=== PATIENT | male | born 1940 | race Caucasian/White ===

== ENCOUNTER → 2016-10-18 | Outpatient (CLI) | payer BC ==
[~2016-10-18] MED LIST: ASPEC81 PO
[2016-10-18 13:33] LABS: ESTIMATED AVERAGE GLUCOSE 120 mg/dl; HA1C FLAG Normal (Normal)
[2016-10-18 13:46] LABS: BLOOD UREA NITROGEN 25 mg/dl (7-18); GLUCOSE 101 mg/dl (70-99)
[2016-10-18 13:47] LABS: ALT/SGPT 28 U/L (12-78); BUN/CREATININE RATIO 20.9 (10-20); CALCIUM 8.8 mg/dl (8.5-10.1); CARBON DIOXIDE 26 mmol/L (21-32); CHLORIDE 107 mmol/L (98-107); POTASSIUM 4.4 mmol/L (3.5-5.1); SODIUM 141 mmol/L (136-145)
== END | disposition home or self-care (01) ==
LOC: C.LABMFLN 08:14
PROVIDERS: ATTEND Family Medicine
DX: R73.01 Impaired fasting glucose (principal)

== ENCOUNTER 2022-05-16 07:04 | Observation (INO) ==
--- NOTE | 2022-03-09 13:31 | PAT Medication Instructions ---
Medication Instructions Date of Service March 09, 2022 Home Medications Medication Instructions Recorded travoprost 0.004 % eye drops 1 drops ophthalmic (eye) QPM #2.5 01/30/19 (Travatan Z) mL travoprost 0.004 % eye drops (Travatan Z) 1 drops ophthalmic (eye) QPM Take evening before surgery travoprost 0.004 % eye drops (Travatan Z) 1 drops ophthalmic (eye) QPM Other Notes If you have any questions please call us at [phone] or [phone] or [phone] or [phone]
--- NOTE | 2022-03-14 10:44 | History & Physical Report ---
Date of Service March 14, 2022 date of surgery: 04/12/22 Procedure: Right Total Knee Arthroplasty Surgeon: Andrew Billy Assessment & Plan (1) Arthritis of right knee: Plan: Presents for evaluation of chronic right knee pain. X-rays reviewed with patient show advanced degenerative changes of the right knee, is [id number] medial compartment and patellofemoral joint with joint space narrowing osteophyte formation subchondral sclerosis. He has tried and failed previous cortisone injection as well as viscosupplementation with minimal relief. Patient is very active and is now hindering his activities. We discussed treatment options he would like to proceed with a patient matched Joanne right total knee replacement at [facility]. We will schedule for Iovera treatment 2 weeks prior to surgery otherwise has no other questions or concerns. We will obtain medical clearance from Dr. Ling The risks and benefits have been discussed including, but not limited to, risk of infection, nerve injury, stiffness, loss of motion, failure to improve, etc. Reasonable outcomes and options of treatment were discussed. An explanation of appropriate alternatives to the procedure that may be advantageous were discussed and their risks and benefits, as well as the risks and benefits of not proceeding with treatment. I offered to answer any additional inquiries concerning the treatment involved. All the patient's questions were answered. The patient is agreeable, understanding of the treatment plan and alternatives, and wishes to proceed with the treatment plan. History of Present Illness Chief Complaint: Right knee pain Primary Care Provider: Eugenio Ling MD Robin is an 82-year-old male who presents for preop evaluation prior to right total knee replacement at [facility]. He has been having pain in this knee for many years now which is gradually worsened. Is now affecting his daily activities including walking standing going up and down steps. He tried oral anti-inflammatories and Tylenol without relief. He has had prior cortisone injections as well as viscosupplementation without relief. After discussing further treatment options he would like to proceed with a right total knee replacement Allergies Allergy/AdvReac Type Severity Reaction Status Date / Time No Known Allergies Allergy Mild NONE Verified 03/08/22 12:07 Home Medications Medication Instructions Recorded Confirmed Type travoprost 0.004 % eye drops 1 drops ophthalmic (eye) QPM #2.5 01/30/19 03/08/22 Rx (Travatan Z) mL Past Med/Surg History Medical History Glaucoma Surgical History History of cataract surgery bilateral History of knee replacement left Hx of appendectomy S/P arthroscopy of right shoulder S/P colonoscopy S/P right knee arthroscopy Family History Mother Brain tumor Uncle Myocardial infarction Father Alcoholic cirrhosis Son Cardiac arrhythmia, Onset Age: 34 irreg heart beat got Defib Sister Vein disorder Osteoporosis, Onset Age: 82 Denies family history of Ovarian cancer Prostate cancer Breast cancer Colorectal cancer Social History Smoking Status: Never smoker Age Started Using Tobacco: 18; Age Quit Using Tobacco: 34; packs per day: 1; Second Hand Exposure: No; Hx Alcohol Use: Yes ("occasionally") Alcohol type: beer Hx Substance Use: No Preferred Language: Guyanese Communication Ability: Effective Visual Impairment: Partially Limited Hearing Ability: Use of Hearing Aid Foundation Coordinator Required: No Beliefs That Will Affect Care: None marital status: Current Living Situation: Spouse current occupational status: employed current occupation: seasonal - trim trees Feels Safe at Home: Yes Childhood Exposure to Second-Hand Smoke: Yes (father) caffeine: Yes (occasional soda) Dental Care, Regularly: Yes Physical Activity Frequency: 5-6 Times per Week Physical Activity Frequency Comment: walking 1 mile a day and modified push ups Seatbelt Use: always Sunscreen Use: Yes Do you think of yourself as: straight/heterosexual Assistive Devices: Denture - Upper and Hearing Aid - Bilateral Review of Systems Review of Systems: All systems reviewed & are unremarkable except as noted in HPI & below Constitutional: no fever, no chills and no sweats Respiratory: no cough and no dyspnea Cardiovascular: no chest pain, no dyspnea and no orthopnea Gastrointestinal: no abdominal pain, no nausea and no vomiting Musculoskeletal: as per Subjective / HPI Physical Exam Physical Exam: HT: 5ft 10in WT: 80.2kg Constitutional: WD/WN, vitals as above no acute distress Respiratory: normal respiratory effort, lungs clear to auscultation no respiratory distress, no labored breathing and does not use accessory muscles Cardiovascular: RRR, no murmur, no edema Gastrointestinal (Abdomen): normal bowel sounds, soft, nontender, no hepatosplenomegaly Musculoskeletal: Knee: + knee abnormal to inspection (RIGHT KNEE-), + effusion (+1 effusion), + limited ROM of knee (ROM 0/3/110), + knee ROM with crepitation, + joint line tenderness (medial joint line) and + Peng's sign positive; no deformity, no skin erythema, no ecchymosis, no valgus laxity, no varus laxity, anterior drawer test negative, Kellen's sign negative and pivot shift test negative Results & Data Results & Data ([facility]) Diagnostic Findings Right Knee X-ray: Right knee series showing advanced degenerative changes to the right knee, narrowing of the medial compartment and patello-femoral joint with patellar spurring noted, findings showing joint space narrowing of the medial compartment and patello-femoral joint, osteophyte formation and subchondral sclerosis noted. overall varus alignment. no acute bony pathology noted.
--- NOTE | 2022-03-16 11:34 | Anesthesiology Consultation ---
Date of Service March 16, 2022 Assessment & Plan (1) Encounter for pre-operative examination: - Outpatient joint assessment: Patient is currently scheduled for inpatient pathway. If re-evaluated pending system levels during current pandemic/surgeon requests outpatient pathway, patient is not recommended candidate for outpatient joint program from anesthesia standpoint due to inadequate home support. If this were to change in the future, he was advised to call the office and this will be further reviewed with anesthesiologist given age. - COVID screening: Per assessment on 03/16/2022: Travel screen negative, no known COVID-19 positive contacts or current COVID-19 related symptoms in past 2 weeks. Pt vaccinated. To surgeon's discretion if preop COVID testing needed. Chart Review Chart Review: Acceptable Risk for Surgery and Patient seen in Pre Admission Testing Teaching & Discussion Pre-Anesthesia Teaching/Discussion Notes: Instructed NPO after midnight before surgery, except medications with 15 cc of water. Medication instructions provided according to the PAT guidelines. History Surgery Operation Date: 04/12/22 10:20 Proposed Procedures p Right Total Knee Arthroplasty - Andrew Billy DO Height/Weight Height: 5 ft 10 in Weight: 83.3 kg Allergies Allergy/AdvReac Type Severity Reaction Status Date / Time No Known Allergies Allergy Mild NONE Verified 03/08/22 12:07 Medications Home Medications Medication Instructions Recorded Confirmed Last Taken travoprost 0.004 % eye drops 1 drops ophthalmic (eye) QPM #2.5 01/30/19 03/08/22 Unknown (Travatan Z) mL Past Medical History Medical History Glaucoma Patient denies h/o stroke, seizures, heart attack, heart failure, DM, HTN, blood clots or blood transfusions. Exercise / Class Metabolic Activity II 4-5 Yardwork/Stairs/Walk up hill (denies CP or SOB With 1 FOS) Past Family History Family History Mother Brain tumor Uncle Myocardial infarction Father Alcoholic cirrhosis Son Cardiac arrhythmia, Onset Age: 34 irreg heart beat got Defib Sister Vein disorder Osteoporosis, Onset Age: 82 Denies family history of Ovarian cancer Prostate cancer Breast cancer Colorectal cancer Past Surgical History Surgical History History of cataract surgery bilateral History of knee replacement left Hx of appendectomy S/P arthroscopy of right shoulder S/P colonoscopy S/P right knee arthroscopy Past Anesthesia History No Hx of Anesthesia Complications and No Family Hx of Anesthesia Complications History of PONV No Hx of PONV and No Hx of Motion Sickness Social History Smoking Status: Never smoker tobacco type: cigarettes Do You Dip or Chew Tobacco: No Hx Alcohol Use: Yes Alcohol type: beer alcohol intake frequency: a few times a week Hx Substance Use: No substance use type: does not use Review of Systems Snoring, denies witnessed apneas. Patient denies chest pain, shortness of breath, dyspnea on exertion, reflux, fever, chills, cough, wheezing, or palpitations. Physical Exam Vital Signs Vitals BP 138/72 P 63 TEMP 98.2 SP02 97% on RA RESP 18 Physical Full cervical extension range of motion without pain TMD 3.5 finger breadths Mallampati Score 2 Dentition: intact, upper partial; denies loose or chipped teeth, caps/crowns, implants or bridges Lungs: normal respiratory effort. Clear throughout to auscultation, no adv entitious breath sounds Cardiac: regular rate and rhythm, no murmurs noted Carotid arteries: negative bruit bilat Lab Results Anesthesia Preop Results Results Anesthesia Widget: WBC 6.03 K/ul (4.8-10.8) 03/16/22 Hgb 14.3 g/dl (14.0-18.0) 03/16/22 Hct 42.7 % (40.1-51.0) 03/16/22 Plt 147 K/uL (130-400) 03/16/22 Na 138 mmol/L (136-145) 03/16/22 K 4.7 mmol/L (3.5-5.1) 03/16/22 Cl 105 mmol/L (98-107) 03/16/22 CO2 27 mmol/L (21-32) 03/16/22 BUN 23 mg/dl (6-23) 03/16/22 Creat 1.02 mg/dl (0.6-1.4) 03/16/22 Glucose Level 101 mg/dl (70-99(Fasting)) H 03/16/22 PT 10.1 Seconds (9.0-12.0) 03/16/22 PTT 25.4 Seconds (21.0-31.0) 03/16/22 INR 0.9 (0.9-1.1) 03/16/22 HA1c 5.9 % (4.5-5.6) H 03/16/22 Urine Color Yellow 03/16/22 Urine Appearance Clear (Clear) 03/16/22 Urine pH 7.0 (4.5-7.5) 03/16/22 Urine Specific [place] 1.012 (1.000-1.030) 03/16/22 Urine Protein Negative (Negative) 03/16/22 Urine Glucose (UA) Negative (Negative) 03/16/22 Urine Ketones Negative (Negative) 03/16/22 Urine Blood Negative (Negative) 03/16/22 Urine Nitrite Negative (Negative) 03/16/22 Urine Bilirubin Negative (Negative) 03/16/22 Urine Urobilinogen Negative (Negative) 03/16/22 Urine Leukocyte Esterase Negative (Negative) 03/16/22 Blood Type A Positive 03/16/22 Antibody Screen NEGATIVE 03/16/22 Testing Electrocardiogram Date: 03/16/22 NSR, rate 61 bpm Left axis deviation Chest X-Ray Date: 03/16/22 PA and lateral chest radiographs are compared to study dated 01/15/2009. The cardiomediastinal silhouette is top normal for projection. Chronic interstitial thickening is similar to previous. There is mild bibasilar scarring/atelectasis. The lungs and pleural spaces are otherwise clear. There is no pneumothorax. The skeletal structures are osteopenic. There are numerous healed bilateral rib fractures. Spondylotic change is noted in the spine. IMPRESSION: No active disease in the chest.
--- NOTE | 2022-04-17 08:06 | History & Physical Report ---
Date of Service April 17, 2022 date of surgery: 05/16/22 Procedure: Right Total Knee Arthroplasty Surgeon: Andrew Billy Assessment & Plan (1) Arthritis of right knee: Plan: Presents for evaluation of chronic right knee pain. X-rays reviewed with patient show advanced degenerative changes of the right knee, is [id number] medial compartment and patellofemoral joint with joint space narrowing osteophyte formation subchondral sclerosis. He has tried and failed previous cortisone injection as well as viscosupplementation with minimal relief. Patient is very active and is now hindering his activities. We discussed treatment options he would like to proceed with a patient matched Joanne right total knee replacement at [facility]. We will schedule for Iovera treatment 2 weeks prior to surgery otherwise has no other questions or concerns. We will obtain medical clearance from Dr. Ling The risks and benefits have been discussed including, but not limited to, risk of infection, nerve injury, stiffness, loss of motion, failure to improve, etc. Reasonable outcomes and options of treatment were discussed. An explanation of appropriate alternatives to the procedure that may be advantageous were discussed and their risks and benefits, as well as the risks and benefits of not proceeding with treatment. I offered to answer any additional inquiries concerning the treatment involved. All the patient's questions were answered. The patient is agreeable, understanding of the treatment plan and alternatives, and wishes to proceed with the treatment plan. History of Present Illness Chief Complaint: right knee pain Primary Care Provider: Eugenio Ling MD Robin is an 82-year-old male who presents for preop evaluation prior to right total knee replacement at [facility]. He has been having pain in this knee for many years now which is gradually worsened. Is now affecting his daily activities including walking standing going up and down steps. He tried oral anti-inflammatories and Tylenol without relief. He has had prior cortisone injections as well as viscosupplementation without relief. After discussing further treatment options he would like to proceed with a right total knee replacement Allergies Allergy/AdvReac Type Severity Reaction Status Date / Time No Known Allergies Allergy Mild NONE Verified 03/27/22 07:54 Home Medications Medication Instructions Recorded Confirmed Type travoprost 0.004 % eye drops 1 drops ophthalmic (eye) QPM #2.5 01/30/19 03/27/22 Rx (Travatan Z) mL Past Med/Surg History Medical History Glaucoma Surgical History History of cataract surgery bilateral History of knee replacement left Hx of appendectomy S/P arthroscopy of right shoulder S/P colonoscopy S/P right knee arthroscopy Family History Mother Brain tumor Uncle Myocardial infarction Father Alcoholic cirrhosis Son Cardiac arrhythmia, Onset Age: 34 irreg heart beat got Defib Sister Vein disorder Osteoporosis, Onset Age: 82 Denies family history of Ovarian cancer Prostate cancer Breast cancer Colorectal cancer Social History Smoking Status: Former smoker Tobacco Type: Cigarettes Age Started Using Tobacco: 18; Age Quit Using Tobacco: 34; packs per day: 1; Second Hand Exposure: No; Do You Dip or Chew Tobacco: No; Tobacco Cessation Education Requested by Patient: No Hx Alcohol Use: Yes Alcohol type: beer Alcohol Intake Frequency: 2-3 x/Week Hx Substance Use: No Preferred Language: Syriac Communication Ability: Effective Visual Impairment: Partially Limited Hearing Ability: Use of Hearing Aid Hazardous Substances Scientist Required: No Beliefs That Will Affect Care: None marital status: Current Living Situation: Spouse current occupational status: retired current occupation: [email or web address] How many Children do You have: 4 Other Information That Helps Us Care for You: No Feels Safe at Home: Yes Safety Concerns: Feels Safe At This Time Childhood Exposure to Second-Hand Smoke: Yes (father) caffeine: Yes (occasional soda) Dental Care, Regularly: Yes Physical Activity Frequency: 5-6 Times per Week Physical Activity Frequency Comment: walking 1 mile a day and modified push ups Seatbelt Use: always Sunscreen Use: Yes Do you think of yourself as: straight/heterosexual Gender Identity: Male Assistive Devices: Denture - Upper, Glasses and Hearing Aid - Bilateral Assistive Devices Comment: upper partial Review of Systems Constitutional: no fever, no chills and no sweats Respiratory: no cough and no dyspnea Cardiovascular: no chest pain, no dyspnea and no orthopnea Gastrointestinal: no abdominal pain, no nausea and no vomiting Musculoskeletal: as per Subjective / HPI Physical Exam Physical Exam: HT: 5ft 10in WT: 80.2kg Constitutional: WD/WN, vitals as above no acute distress Respiratory: normal respiratory effort, lungs clear to auscultation no respiratory distress, no labored breathing and does not use accessory muscles Cardiovascular: RRR, no murmur, no edema Gastrointestinal (Abdomen): normal bowel sounds, soft, nontender, no hepatosplenomegaly Musculoskeletal: Knee: + knee abnormal to inspection (RIGHT KNEE-), + effusion (+1 effusion), + limited ROM of knee (ROM 0/3/110), + knee ROM with crepitation, + joint line tenderness (medial joint line) and + Peng's sign positive; no deformity, no skin erythema, no ecchymosis, no valgus laxity, no varus laxity, anterior drawer test negative, Kellen's sign negative and pivot shift test negative Results & Data Results & Data ([facility]) Diagnostic Findings Right Knee X-ray: Right knee series showing advanced degenerative changes to the right knee, narrowing of the medial compartment and patello-femoral joint with patellar spurring noted, findings showing joint space narrowing of the medial compartment and patello-femoral joint, osteophyte formation and subchondral sclerosis noted. overall varus alignment. no acute bony pathology noted.
[~2022-05-16 07:04] MED LIST changes: +ACETAMINOPHEN 500 MG TAB PO SCH; -ASPEC81 PO; +BUPIVACAINE 0.25% 30 ML VIAL ONE; +BUPIVACAINE 0.5 % 5 MG/1 ML PF 10ML VIAL ONE; +CeleBREX 200 MG CAP PO SCH; +FAMOTIDINE 20 MG TAB PO SCH; +GABAPENTIN 300 MG CAP PO SCH; +LR 500ML BOLUS, THEN 15ML/HR IV SCH; +METOCLOPRAMIDE HCL 10 MG TABLET PO SCH; +ROPIVACAINE 0.5% HCL/PF 150 MG, BUPIVACAINE 0.75% MPF 20 ML, EPINEPHrine 30MG/30ML (OR ... INFIL SCH; +ROPIVACAINE 0.5% HCL/PF 150 MG, BUPIVACAINE 0.75% MPF 20 ML, EPINEPHrine 30MG/30ML (OR ... INSTIL SCH; +TRANEXAMIC ACID 1,000 MG **IV Intra-op IV SCH; +TRANEXAMIC ACID 1,000 MG **IV Pre-op IV SCH; +ceFAZolin 2000MG 2,000 MG/15 ML SYR IV SCH; +dexAMETHasone 4 MG TAB PO SCH
[2022-05-16] MEDS ORDERED: MIDAZOLAM HCL 1 MG/ML 2ML VIAL ONE (07:58)
--- NOTE | 2022-05-16 08:38 | History & Physical Bridge Note ---
Date of Service May 16, 2022 History & Physical Bridge Note I have examined the patient, reviewed the History & Physical and in the interval since the performance of the History & Physical I have noted the following changes of clinical significance: no changes noted
[2022-05-16] MEDS ORDERED: ORTHO JOINT ANESTHETIC ONE (09:02)
[2022-05-16] MEDS ORDERED: ONDANSETRON INJ 2 MG/ML 2 ML VIAL IV PRN ×2 (09:22→13:37)
[2022-05-16] MEDS ORDERED: ePHEDrine sulfate 50 MG/ML AMP IV PRN (09:22)
[2022-05-16] MEDS ORDERED: ATROPINE SULFATE 0.1 MG/ML 10ML SYR IV PRN (09:22)
[2022-05-16] MEDS ORDERED: fentaNYL citrate 100 MCG/2 ML VIAL IV PRN (09:22)
[2022-05-16] MEDS ORDERED: PROPOFOL IV EMULSION 10 MG/ML 20 ML VIAL IV ONE (10:09)
[2022-05-16] MEDS ORDERED: ONDANSETRON INJ 2 MG/ML 2 ML VIAL ONE (10:09)
--- NOTE | 2022-05-16 11:04 | Operative Report ---
Post Operative Report Pre & Post Diagnosis Operation Date: 05/16/22 09:35 Pre-Op Diagnosis: Primary Osteoarthritis of Right Knee Post-Op Diagnosis: Primary Osteoarthritis of Right Knee I identified the patient and participated in the time-out.: Yes Procedure Operation Date: 05/16/22 09:35 Actual Procedures p Right Total Knee Arthroplasty(Right) - Andrew Billy DO Surgeon Andrew Billy DO I attest to the content of the Intraoperative Record and any orders documented therein. Any exceptions are noted below.
--- NOTE | 2022-05-16 11:06 | Operative Report ---
Post Operative Report Pre & Post Diagnosis Operation Date: 05/16/22 09:35 Pre-Op Diagnosis: Primary Osteoarthritis of Right Knee Post-Op Diagnosis: Primary Osteoarthritis of Right Knee I identified the patient and participated in the time-out.: Yes Procedure Operation Date: 05/16/22 09:35 Actual Procedures p Right Total Knee Arthroplasty(Right utilizing Joanne [employer] persona patient matched femur size 10 standard tibia G polyten medial constrained patella 31 oval- Andrew Billy DO Surgeon Andrew Billy DO Earth Mover LOPEZ Butcher Estimated Blood Loss 5 Findings Consistent with Post-Op Diagnosis Patient resents with severe end-stage DJD right knee eburnated [id number] varus alignment subchondral sclerosis 5 degree flexion contracture moderate to large effusion Specimens Bone and cartilage Drains Medium bore Hemovac Anesthesia Type MAC Spinal Regional Complications none Disposition Accompanied Patient To Recovery: No Disposition: Recovery Room Indications Patient presents with severe end-stage tricompartmental DJD right knee no response to conservative management patient failed attempted corticosteroid injection viscosupplementation relative rest activity modification patient presents for right total knee arthroplasty Description of Procedure After proper prepping and draping of the Right lower extremity anterior midline incision was made over the region of the extensor extensor mechanism after meticulous hemostasis was obtained and maintained in subcutaneous tissues a medial parapatellar incision was made The patella was subluxed lateralward the medial lateral gutter were cleaned from any hypertrophic synovitis and scar tissue of the distal femoral block was placed and the distal femoral osteotomy cut was made subsequently the chamfers anterior and posterior osteotomy cuts were made utilizing the 4-in-1 block the tibia was subsequently subluxed anter iorward medial and ateral meniscal remnants were excised in their entirety remnants of the anterior and posterior cruciate ligaments were excised in their entirety excellent exposure of the proximal tibia was obtained the tibial osteotomy guide was placed on the proximal tibial osteotomy cut was made once again the knee was irrigated with copious amounts of sterile saline solution the patella was subsequently everted lateralward thickened scar tissue around the patella was removed the patella was subsequently cut utilizing a freehand technique and was drilled prepared for final preparation and placement of patella socially flexion-extension gaps were checked and the equal and symmetric trials were placed to the appropriate femoral and tibial trials with poly-spacer being placed for equal flexion and extension gaps and full range of motion including extension to 0 and flexion to 140 the trial components after having been taken to recovery range of motion was subsequently removed meticulous hemostasis was obtained and maintained subsequently a knee block injection of joint cocktail including ropivacaine 0.5% 150 mg. Bupivacaine 0.5% epinephrine 1-200,030 mL's toradol 30 mg dexamethasone 4 mg ketamine 10 mg clonidine 100 micrograms normal saline solution 30 mg was infiltrated into the soft tissues of the posterior knee medial lateral gutters and periosteal synovium special atte ntion was paid to protect neurovascular structures at all times subsequently trial components having been removed the knee was irrigated with sterile saline solution. debris was removed the proximal tibia was subsequently prepared and was made ready for the placement of the tibial component tibial component was also cemented and tamped into position the femoral component was subsequently placed and cemented in the position the patellar component was subsequently cemented in position because hemostasis once again obtained and maintained wound having been thoroughly irrigated with debridement and debridement lavage was performed as well as a medial parapatellar incision closed with #1 Vicryl in interrupted fashion subcutaneous was closed with #2 Vicryl skin was closed with skin clips. PA-C was necessary for prepping and drapping as well as wound closure of deep fascia Sub cutaneous tissue and skin and was necessary for the case. A sterile compressive dressing was placed patient was taken to recovery in stable condition of report dictated by Wenceslao I attest to the content of the Intraoperative Record and any orders documented therein. Any exceptions are noted below.Due to the complex nature of the procedure, the entire surgery was performed with the operational assistance of TANIA Butcher. The orthodontic technician assistant, under direct supervision, was involved in the actual performance of all aspects of the surgical procedure including hemostasis, tissue retraction and incision, instrument management, patient positioning, and wound closure. I attest to the content of the Intraoperative Record and any orders documented therein. Any exceptions are noted below.
--- NOTE | 2022-05-16 12:43 | XRay Report ---
RIGHT KNEE 2 VIEWS History: Right total knee arthroplasty. Degenerative arthritis. Postop. FINDINGS: The patient is status post a right total knee arthroplasty. The hardware is intact. No frac ture or dislocation. Surgical drains are in place. IMPRESSION: Right total knee arthroplasty. No evidence for hardware complication. ACT 112: Negative or not required by law. Electronically signed by: Nando Aburto M.D. 05/16/2022 12:41 PM
[2022-05-16] MEDS ORDERED: diphenhydrAMINE Capsule 25 MG CAP PO PRN (13:37)
[2022-05-16] MEDS ORDERED: NALOXONE HCL 0.4 MG/1 ML VIAL/CARP IV PRN (13:37)
[2022-05-16] MEDS ORDERED: oxyCODONE HCL IR 5 MG TAB (IMMEDIATE RELEASE) PO PRN (13:37)
[2022-05-16] MEDS ORDERED: HYDROmorphone INJ 1 MG/ML SYRINGE IV PRN (13:37)
[2022-05-16] MEDS ORDERED: SODIUM CHLORIDE 0.9% 1000ML 1,000 ML IV SCH (13:37)
[2022-05-16] MEDS ORDERED: METOCLOPRAMIDE HCL INJ 5 MG/ML 2 ML VIAL IV PRN (13:37)
[2022-05-16] MEDS ORDERED: bisacodyL 10 MG SUPP PR PRN (13:37)
[2022-05-16] MEDS ORDERED: MAGNESIUM HYDROXIDE SUSP 30 ML UDC PO PRN (13:37)
--- NOTE | 2022-05-16 13:49 | Anesthesiology Progress Note ---
Date of Service May 16, 2022 Anesthesia Post Procedure Vital Signs Vital Signs: Temp Pulse Pulse Resp BP Pulse Ox O2 Del Method 05/16/22 13:47 36.4 C L 54 L 18 131/55 L 97 Room Air 05/16/22 13:15 36.5 C 58 L 16 133/64 97 Room Air 05/16/22 13:00 36.2 C L 55 L 19 107/54 L 96 Room Air 05/16/22 12:50 57 L 21 128/63 97 Room Air 05/16/22 12:40 54 L 15 125/55 L 93 Room Air 05/16/22 12:30 54 L 12 131/55 L 94 Room Air 05/16/22 12:20 36.3 C L 60 16 110/61 96 Room Air 05/16/22 12:10 57 L 19 118/51 L 99 Oxymask 05/16/22 12:00 57 L 14 124/57 L 97 Oxymask 05/16/22 11:50 54 L 16 113/51 L 96 Oxymask 05/16/22 11:41 36.2 C L 69 12 113/54 L 97 Oxymask 05/16/22 07:25 37.1 C 74 18 184/91 H 98 Room Air O2 Flow Rate 05/16/22 13:47 05/16/22 13:15 05/16/22 13:00 05/16/22 12:50 05/16/22 12:40 05/16/22 12:30 05/16/22 12:20 05/16/22 12:10 4 05/16/22 12:00 4 05/16/22 11:50 6 05/16/22 11:41 8 05/16/22 07:25 Transfer of Care Handoff Completed per policy Notes Mental Status: alert / awake / arousable and participated in evaluation Patient Amnestic to Procedure: Yes Nausea / Vomiting: adequately controlled Pain: adequately controlled Airway Patency, RR, SpO2: stable & adequate BP & HR: stable & adequate Hydration State: stable & adequate Neuraxial Anesthesia: was administered and sensory block is resolving Anesthetic Complications: no major complications apparent and Pt Satisfied with anesthetic care
--- NOTE | 2022-05-16 13:51 | Hospitalist Consultation ---
Date of Consultation May 16, 2022 Assessment & Plan (1) Arthritis of right knee: S/p right TKA with Dr. Billy on 05/16. EBL was 5 mL per op note. - Standard post-op care per primary team - DVT ppx per primary team - Presently ASA 81 mg PO BID (2) Glaucoma of both eyes: - Continue home drops Given medical stability, Hospital Medicine team will sign off. Please re-consult with any questions or concerns. Thank you for letting us assist in the care of this patient! History of Present Illness Attending Physician: Andrew Billy DO History of Present Illness 82yo M w/ hx of glaucoma who presents as a routine consult after Right Total Knee Arthroplasty. The patient is in good spirits post op. No pain in knee. He has glaucoma as his only medical issue. Allergies Allergy/AdvReac Type Severity Reaction Status Date / Time No Known Allergies Allergy Mild NONE Verified 05/16/22 07:22 Home Medications Medication Instructions Recorded Confirmed Type travoprost 0.004 % eye drops 1 drops ophthalmic (eye) QPM #2.5 01/30/19 05/16/22 Rx (Travatan Z) mL Patient History Medical History Glaucoma Surgical History History of cataract surgery bilateral History of knee replacement left Hx of appendectomy S/P arthroscopy of right shoulder S/P colonoscopy S/P right knee arthroscopy Family History Mother Brain tumor Uncle Myocardial infarction Father Alcoholic cirrhosis Son Cardiac arrhythmia, Onset Age: 34 irreg heart beat got Defib Sister Vein disorder Osteoporosis, Onset Age: 82 Denies family history of Ovarian cancer Prostate cancer Breast cancer Colorectal cancer Social History Smoking Status: Former smoker Tobacco Type: Cigarettes Age Started Using Tobacco: 18; Age Quit Using Tobacco: 34; packs per day: 1; Second Hand Exposure: No; Do You Dip or Chew Tobacco: No; Tobacco Cessation Education Requested by Patient: No Hx Alcohol Use: Yes Alcohol type: beer Alcohol Intake Frequency: 2-3 x/Week Hx Substance Use: No Preferred Language: Spanish Communication Ability: Effective Visual Impairment: Partially Limited Hearing Ability: Use of Hearing Aid Wind Development Director Required: No Beliefs That Will Affect Care: None marital status: Current Living Situation: Spouse current occupational status: retired 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 How many Children do You have: 4 Other Information That Helps Us Care for You: No Feels Safe at Home: Yes Safety Concerns: Feels Safe At This Time Childhood Exposure to Second-Hand Smoke: Yes (father) caffeine: Yes (occasional soda) Dental Care, Regularly: Yes Physical Activity Frequency: 5-6 Times per Week Physical Activity Frequency Comment: walking 1 mile a day and modified push ups Seatbelt Use: always Sunscreen Use: Yes Do you think of yourself as: straight/heterosexual Gender Identity: Male Assistive Devices: Denture - Upper, Glasses and Hearing Aid - Bilateral Assistive Devices Comment: upper partial Review of Systems Review of Systems: All systems reviewed & are unremarkable except as noted in HPI & below Physical Exam Constitutional: WD/WN, vitals as above Eyes: EOM intact bilaterally; no conjunctival abnormality ENMT: external ear and nose normal, oropharynx normal Neck: trachea midline, no thyromegaly normal visual inspection Respiratory: normal respiratory effort, lungs clear to auscultation no respiratory distress Cardiovascular: RRR, no murmur, no edema Gastrointestinal (Abdomen): Inspection/Auscultation: abdomen normal to inspection; abdomen not distended Musculoskeletal: Right knee bandaged. Right toes neurovascularly intact. Skin: no rashes, warm and dry Neurologic: moves all extremities and awake Psychiatric: Orientation: alert, oriented to person and cooperative Results & Data Results & Data ([facility]) Vital Signs (Past 12 Hours) Vital Signs Temp Pulse Pulse Resp BP Pulse Ox O2 Del Method 05/16/22 13:15 36.5 C 58 L 16 133/64 97 Room Air 05/16/22 13:00 36.2 C L 55 L 19 107/54 L 96 Room Air 05/16/22 12:50 57 L 21 128/63 97 Room Air 05/16/22 12:40 54 L 15 125/55 L 93 Room Air 05/16/22 12:30 54 L 12 131/55 L 94 Room Air 05/16/22 12:20 36.3 C L 60 16 110/61 96 Room Air 05/16/22 12:10 57 L 19 118/51 L 99 Oxymask 05/16/22 12:00 57 L 14 124/57 L 97 Oxymask 05/16/22 11:50 54 L 16 113/51 L 96 Oxymask 05/16/22 11:41 36.2 C L 69 12 113/54 L 97 Oxymask 05/16/22 07:25 37.1 C 74 18 184/91 H 98 Room Air O2 Flow Rate 05/16/22 13:15 05/16/22 13:00 05/16/22 12:50 05/16/22 12:40 05/16/22 12:30 05/16/22 12:20 05/16/22 12:10 4 05/16/22 12:00 4 05/16/22 11:50 6 05/16/22 11:41 8 05/16/22 07:25 PG Care Time/CCT Total # of Minutes Spent Total Time Spent with Patient: Total time spent is greater than 50% in coordination of care (as documented) at patient's floor/unit and/or counseling patient: Coding Level of Care Code 03300 Office/OBS Consult Lvl 1 Diagnoses Arthritis of right knee M17.11 Glaucoma of both eyes H40.9
[2022-05-16] MEDS: ACETAMINOPHEN 500 MG TAB PO SCH ×2 (14:42→22:58)
[2022-05-16] MEDS: KETOROLAC TROMETHAMINE 15 MG/ML VIAL IV SCH ×2 (14:43→19:50)
[2022-05-16] MEDS: ceFAZolin 2000MG 2,000 MG/15 ML SYR IV SCH (18:19)
[2022-05-16] MEDS ORDERED: SENNA 8.6 MG TAB PO SCH (21:00)
[2022-05-16] MEDS ORDERED: TRAVOPROST Z 0.004% OPH SOLN 2.5 ML BTL OP SCH (21:00)
[2022-05-16] MEDS: DOCUSATE SODIUM 100 MG CAP PO SCH (21:09)
[2022-05-16] MEDS: ASPIRIN 81 MG ECTAB PO SCH (22:58)
[2022-05-17] MEDS: ceFAZolin 2000MG 2,000 MG/15 ML SYR IV SCH (01:47)
[2022-05-17] MEDS: KETOROLAC TROMETHAMINE 15 MG/ML VIAL IV SCH ×2 (01:49→07:42)
[2022-05-17 03:18] VITALS: O2SAT 96
[2022-05-17] MEDS: ACETAMINOPHEN 500 MG TAB PO SCH (06:21)
[2022-05-17 06:30] LABS: Hematocrit (blood only) 37.9 % (40.1-51.0); Hemoglobin 13.1 g/dl (14.0-18.0); Mean Corpuscular Hemoglobin 32.5 pg (25.0-34.0); Mean Corpuscular Hgb Conc 34.6 g/dL (32.0-36.0); Mean Platelet Volume 10.1 fL (9.4-12.4); Platelet Count 144 K/uL (130-400); RDW Coefficient of Variation 13.1 % (11.5-14.5); RDW Standard Deviation 44.9 fL (36.4-46.3); Red Blood Count 4.03 M/uL (4.63-6.08); White Blood Count 14.51 K/ul (4.8-10.8)
[2022-05-17 06:50] LABS: BUN Creatinine Ratio 20.3 (10-20); Calcium 8.7 mg/dl (8.5-10.1); Creatinine Clr Calc Pharmacy 44.1 ml/min; Est GFR (African American) 55.6 ml/min; Est GFR (Non-African American) 47.9 ml/min; Potassium 4.5 mmol/L (3.5-5.1)
--- NOTE | 2022-05-17 07:11 | Orthopedic Progress Note ---
Date of Service May 17, 2022 Assessment & Plan (1) History of total right knee replacement: Plan: POD #1 s/p Right TKA pt/ot dvt proph with DEMETRIO/SCD/ASA plan for d/c home with HHPT, d/c hemovac prior to d/c Admission and Anticipated Discharge Date Admission Date: May 16, 2022 Subjective POD #1 s/p Right TKA Review of Systems Constitutional: no fever, no chills and no sweats Respiratory: no cough and no dyspnea Cardiovascular: no chest pain and no dyspnea Gastrointestinal: no abdominal pain, no nausea and no vomiting Physical Exam Physical Exam: Vital Signs Temp 36.8 C 05/17/22 03:17 Pulse 57 L 05/17/22 03:17 Resp 16 05/17/22 03:17 BP 129/64 05/17/22 03:17 Pulse Ox 96 05/17/22 03:17 O2 Del Method 05/17/22 03:17 O2 Flow Rate 4 05/16/22 12:10 Intake & Output 05/16/22 05/17/22 05/17/22 18:59 06:59 18:59 Intake Total 1999 / 1999 Output Total 375 / 525 150 / 525 Balance 1625 / 1475 -150 / 1475 Weight 81.5 kg Intake: IV 200 / 200 Lactated Ringe r's 1,000 ml @ 15 0 / 0 mls/hr IV .Q24 H [facility] Rx#: [id number] Sodium Chlorid e 0.9% 1000ML 1, 100 / 100 000 ml @ 100 m ls/hr IV .Q10H [facility] Rx#:[id number] Tranexamic Aci d / 0.7% NaCl 1, 100 / 100 000 mg In 100 ml @ 600 mls/hr IV TODAY@0600 [facility] Rx#:[id number] IV Perioperative 1800 / 1800 Output: Urine 200 / 200 Estimated Blood Loss 5 / 5 Drain Output 170 / 320 150 / 320 Right Knee Hem ovac 170 / 320 150 / 320 Other: # Unmeasured Voi ds 1 1 Weight Measureme nt Method Standing Scale Musculoskeletal: Right Leg: NVDI, calf SNT, negative rohit sign. DP palpable, able to wiggle toes/ankle movement without difficulty. dressing clean dry and intact. Results & Data ([facility]) Vital Signs (Past 12 Hours) Vital Signs Temp Pulse Resp BP Pulse Ox O2 Del Method 05/17/22 03:17 36.8 C 57 L 16 129/64 96 Room Air 05/16/22 23:01 36.6 C 56 L 17 116/64 95 Room Air 05/16/22 20:07 36.5 C 62 17 145/67 H 95 Room Air 05/16/22 20:00 Room Air Diagnostic Findings Laboratory Results WBC 14.51 K/ul (4.8-10.8) H 05/17/22 05:44 RBC 4.03 M/uL (4.63-6.08) L 05/17/22 05:44 Hgb 13.1 g/dl (14.0-18.0) L 05/17/22 05:44 Hct 37.9 % (40.1-51.0) L 05/17/22 05:44 MCV 94.0 fL (80.0-100.0) 05/17/22 05:44 MCH 32.5 pg (25.0-34.0) 05/17/22 05:44 MCHC 34.6 g/dL (32.0-36.0) 05/17/22 05:44 RDW Std Deviation 44.9 fL (36.4-46.3) 05/17/22 05:44 RDW Coeff of Toby 13.1 % (11.5-14.5) 05/17/22 05:44 Plt Count 144 K/uL (130-400) 05/17/22 05:44 MPV 10.1 fL (9.4-12.4) 05/17/22 05:44 Sodium 137 mmol/L (136-145) 05/17/22 05:44 Potassium 4.5 mmol/L (3.5-5.1) 05/17/22 05:44 Chloride 106 mmol/L (98-107) 05/17/22 05:44 Carbon Dioxide 25 mmol/L (21-32) 05/17/22 05:44 Anion Gap 6 (3-11) 05/17/22 05:44 BUN 28 mg/dl (6-23) H 05/17/22 05:44 Creatinine 1.38 mg/dl (0.6-1.4) 05/17/22 05:44 Est Cr Clr Drug Dosing 44.1 ml/min 05/17/22 05:44 Est GFR ( Amer) 55.6 ml/min 05/17/22 05:44 Est GFR (Non-Af Amer) 47.9 ml/min 05/17/22 05:44 BUN/Creatinine Ratio 20.3 (10-20) H 05/17/22 05:44 Glucose 132 mg/dl (70-99(Fasting)) H 05/17/22 05:44 Calcium 8.7 mg/dl (8.5-10.1) 05/17/22 05:44 SARS-CoV-2, RNA, NAAT NEGATIVE (NEGATIVE) 05/16/22 Unknown Impressions Knee X-Ray 05/16/22 11:48 RIGHT KNEE 2 VIEWS History: Right total knee arthroplasty. Degenerative arthritis. Postop. FINDINGS: The patient is status post a right total knee arthroplasty. The hardware is intact. No fracture or dislocation. Surgical drains are in place. IMPRESSION: Right total knee arthroplasty. No evidence for hardware complication. ACT 112: Negative or not required by law. Electronically signed by: Nando Aburto M.D. 05/16/2022 12:41 PM
--- NOTE | 2022-05-17 07:16 | Discharge Summary ---
Date of Service date of discharge: May 17, 2022 date of admission: 05/16/22 Admission HPI Per Admitting Provider Robin is an 82-year-old male who presents for preop evaluation prior to right total knee replacement at [facility]. He has been having pain in this knee for many years now which is gradually worsened. Is now affecting his daily activities including walking standing going up and down steps. He tried oral anti-inflammatories and Tylenol without relief. He has had prior cortisone injections as well as viscosupplementation without relief. After discussing further treatment options he would like to proceed with a right total knee replacement Principal Diagnosis right knee osteoarthritis Discharge Exam Vital Signs Temp 36.8 C 05/17/22 03:17 Pulse 57 L 05/17/22 03:17 Resp 16 05/17/22 03:17 BP 129/64 05/17/22 03:17 Pulse Ox 96 05/17/22 03:17 O2 Del Method 05/17/22 03:17 O2 Flow Rate 4 05/16/22 12:10 Intake & Output 05/16/22 05/17/22 05/17/22 18:59 06:59 18:59 Intake Total 1999 / 1999 Output Total 375 / 525 150 / 525 Balance 1625 / 1475 -150 / 1475 Weight 81.5 kg Intake: IV 200 / 200 Lactated Ringer's 1,000 ml @ 15 0 / 0 mls/hr IV .Q24H [facility] Rx#: [id number] Sodium Chloride 0.9% 1000ML 1, 100 / 100 000 ml @ 100 mls/hr IV .Q10H [facility] Rx#:[id number] Tranexamic Acid / 0.7% NaCl 1, 100 / 100 000 mg In 100 ml @ 600 mls/hr IV TODAY@0600 [facility] Rx#:[id number] IV Perioperative 1800 / 1800 Output: Urine 200 / 200 Estimated Blood Loss 5 / 5 Drain Output 170 / 320 150 / 320 Right Knee Hemovac 170 / 320 150 / 320 Other: # Unmeasured Voids 1 1 Weight Measurement Method Standing Scale Musculoskeletal Right knee: NVDI, calf SNT, negative rohit sign. DP palpable, able to wiggle toes/ankle movement without difficulty. dressing clean dry and intact. expected post-operative bruising noted. Discharge Data Allergies Allergy/AdvReac Type Severity Reaction Status Date / Time No Known Allergies Allergy Mild NONE Verified 05/16/22 07:22 Consultations 05/12/22 15:04 Consult Hospitalist Routine Procedures Performed Operation Date: 05/16/22 09:35 Actual Procedures p Right Total Knee Arthroplasty(Right) - Andrew Hickey DO Ordered Studies 04/12/22 05:00 US - OR guided needle placemen Routine 05/16/22 05:00 US - OR guided needle placemen Routine Hospital Course (1) History of total right knee replacement: POD #1 s/p Right TKA pt/ot dvt proph with DEMETRIO/SCD/ASA plan for d/c home with HHPT, d/c hemovac prior to d/c Total Time Total Time Spent Total Time Spent (In Minutes): 20 Discharge Plan Discharge Items Patient Disposition: Home - Home Health Services Reason For Visit: Primary Osteoarthritis of Right Knee Discharge Diagnosis: RIGHT TOTAL KNEE REPLACEMENT Activity: Per Instructions section Weightbearing Comment: WBAT WITH WALKER Non-emergency contact: Surgeon Call non-emergency contact if: you have any medication questions, your temperature is above 101, your wound has increased redness, your wound has increased drainage and your wound pain has increased Follow-up/Referrals: Eugenio Ling MD [Primary Care Provider] - Diet: Regular Addtl Attending Provider Instructions: ACTIVITY RECOMMENDATIONS: SELF CARE INSTRUCTIONS AFTER TOTAL KNEE REPLACEMENT A. You may need to continue a physical therapy program after discharge from the hospital. There are several options available to you. Your doctor will assist you in selecting the best one for you. 1. An out-patient facility 2 to 3 times a week for therapy or home therapy. 2. Continue working on all exercises taught to you in the hospital. Your goals should be to increase bending of your knee to 90 degrees and beyond and to fully straighten your knee. B. You may progress at your own pace from walking with a walker or crutches to a cane; then to no assistive devices. C. Make walking a part of your daily routine. Be up as much as comfortable with rest periods throughout the day. Rest with leg elevation is very important. Use the ice wrap frequently for the first 3-4 weeks. D. There are no restrictions on activities. You may ride in a car, shop, participate in psychiatric mental health nurse and all social activities. E. Wear the long elastic stockings (DEMETRIO hose) 20 hours a day for 2 weeks after surgery. They can be removed several times a day for laundering and for a bath. F. You may shower, no tub baths until cleared by your doctor. SPECIAL CARE INSTRUCTIONS: VERY IMPORTANT TO READ AND REVIEW A. There are a few signs you need to watch for after you are home. Call [facility] if you notice any of the followin. Increased severe knee pain. Some pain is expected especially when you exercise. 2. Increased swelling in your leg or knee; pain or swelling of the calf muscle in either lower leg. 3. Any fluid drainage from the incision. 4. Shortness of breath or chest pain. B. Please call [facility] at if you have any concerns or questions about your operation or recovery. The doctor or his nurse will return your call promptly. C. You must take antibiotics before dental work, bladder, bowel or other surgery. Your doctor will provide you with a permanent care to carry describing this precaution. IMPORTANT: * REMEMBER TO TAKE ASPIRIN, 81 MG, TWICE DAILY FOR 4 WEEKS UNLESS OTHERWISE DIRECTED. THIS IS YOUR BLOOD THINNER. * HIGH RISK PATIENTS MAY BE PRESCRIBED A STRONGER BLOOD THINNER. THIS WILL BE PROVIDED AT DISCHARGE. * CALL IF INCREASED PAIN, REDNESS, DRAINAGE OR FEVER GREATER THAT 101. * WEAR DEMETRIO HOSE 20 HOURS PER DAY FOR 2 WEEKS. * IDANIA Dressing- This is a large suction dressing covering your incision. This will help pull any excess drainage from the wound and allow your incision to heal properly. You may shower with this if you can keep the unit outside of the shower. If any bleeding or leakage is noted please call your doctor's office. This will remain on your incision for 7 days and then should be removed. This can be done yourself or by the home nursing staff if applicable. The entire unit is disposable once removed. Once removed, keep incision clean and dry. If redness or drainage is noted, please call your surgeon. ONCE IDANIA IS REMOVED, FOLLOW THESE INSTRUCTIONS: DERMABOND Prineo- This is a mesh tape dressing that is covered with glue. It should remain in place until the incision is properly healed, usually 10-14 days. This dressing is designed to naturally slough off. You may trim the excess mesh tape as it peels off. Incision may be briefly wet in a shower. Dry immediately by blotting with a clean, dry towel. Do not bath or swim until instructed by your doctor. Do not scratch, rub, or pick at the dressing. Do not apply any topical ointments or lotions until dressing is completely removed and/or instructed by your doctor. There may be a small piece of suture material at one end of your incision. Do not pull or trim this. If it is bothersome or catching on clothing, you may cover it with a band-aid. IF INCISION IS LEAKING THROUGH DRESSING, CALL THE OFFICE . FOLLOW UP VISIT: If appointment is not already scheduled: Please call [facility] to make a follow-up appointment for 2 weeks after your surgery at . Pending Studies at Discharge: No Stand-Alone Forms: [facility] Medications and DC Order Prescriptions: New celecoxib [Celebrex] 200 mg Capsule 200 mg PO BID 28 Days Qty: 56 0RF aspirin 81 mg Tablet,Delayed Release (Dr/Ec) 81 mg PO BID 28 Days Qty: 56 0RF acetaminophen [Tylenol Extra Strength] 500 mg Tablet 1,000 mg PO Q8 21 Days Qty: 126 0RF oxycodone 5 mg Tablet 5 - 10 mg PO Q6H PRN (Reason: pain) Qty: 30 0RF Rx Instructions: ongoing therapy, supervising dr nikolas hickey. max 6 tabs in 24 hours docusate sodium 100 mg Capsule 100 mg PO BID 10 Days Qty: 20 0RF cefadroxil 500 mg capsule 500 mg PO BID 14 Days Qty: 28 0RF Continued Travatan Z 0.004 % drops 1 drops OP QPM Qty: 2.5 2RF Discharge Orders: Discharge Order (Routine); Ordered 05/17/22 Ordered By: Junior Gómez Admission Data Admit Date/Time: 05/16/22 11:48 Attending Provider: Andrew Hickey Admit Provider: Andrew Hickey Primary Care Provider: Eugenio Ling Other Providers: Ciro Alexandra
[2022-05-17 07:29] VITALS: BP 131/74; TEMP 97.7
[2022-05-17] MEDS: DOCUSATE SODIUM 100 MG CAP PO SCH (07:38)
[2022-05-17] MEDS: ASPIRIN 81 MG ECTAB PO SCH (07:39)
[2022-05-17] MEDS ORDERED: CeleBREX 200 MG CAP PO SCH (09:00)
[2022-05-17] MEDS ORDERED: MULTIVITAMIN TAB PO SCH (09:00)
[2022-05-17 12:36] VITALS: PULSE 57
== END 2022-05-17 14:20 | disposition home health service (06) ==
LOC: ASU 07:04 → 3N 07:04